=== PATIENT | male | born 1990 | race Caucasian/White ===

== ENCOUNTER 2016-12-18 04:10 | Emergency (ER) | payer OTHER ==
[~2016-12-18] VITALS: Ht 172.7 cm; Wt 68.0 kg
[2016-12-18 04:23] VITALS: BP 156/96
[2016-12-18] MEDS ORDERED: IBUP-1007 PO (04:50)
--- NOTE | 2016-12-18 04:51 | PHYS DOC ---
Past Medical History Past Medical History: Asthma, Depression Past Surgical History: No Surgical History Alcohol Use: Occasionally Drug Use: None Adult General Chief Complaint Chief Complaint: MECHANICAL FALL HPI HPI Patient is a 25 year old male who presents with buttock pain after a fall. The patient states he was at a [employer] & tripped over a broom. He fell backwards onto his buttocks, now complains of right gluteal pain. Denies head trauma or loss of consciousness. No syncope or lightheadedness contributing to fall. Denies back pain or extremity injuries. Denies bowel/ bladder incontinence/retention, denies saddle anesthesia, able to ambulate. No meds taken prior to arrival. Admits to EtOH use tonight. Review of Systems Review of Systems Constitutional: Denies fever or chills HENT: Denies nasal congestion or sore throat Respiratory: Denies cough or shortness of breath Cardiovascular: Denies chest pain GI: Denies abdominal pain Musculoskeletal: Reports buttock pain Integument: Denies rash or skin lesions Neurologic: Denies headache Current Medications Current Medications Current Medications Medications (Trade) Dose Ordered Sig/Derick Start Time Stop Time Status Last Admin Dose Admin Ibuprofen (Motrin) 600 mg 1X ONCE 12/18/16 05:00 12/18/16 05:01 DC 12/18/16 04:44 600 MG Allergies Allergies Allergies Coded Allergies Type Severity Reaction Last Updated Verified No Known Drug Allergies 12/18/16 No Physical Exam Physical Exam Constitutional: Well developed, well nourished, no acute distress, non-toxic appearance. HENT: Normocephalic, atraumatic, bilateral external ears normal, oropharynx moist, nose normal. Eyes: conjunctiva normal, no discharge. Neck: supple, no stridor. Cardiovascular: RRR, no murmurs, no edema. Lungs & Thorax: LCTAB, no wheezing, no respiratory distress. Abdomen: soft, nontender, nondistended. Skin: Warm, dry, no erythema, no rash. Back: No focal spinal tenderness, no step offs. Extremities: generalized tenderness to right buttock without focal bony tenderness to hip or pelvis. Neurologic: Alert and oriented X 3, no focal deficits noted. symmetric strength/ sensation to LE Psychologic: Affect normal, judgement normal, mood normal. Current Patient Data Vital Signs Vital Signs Date Time Temp Pulse Resp B/P Pulse Ox O2 Delivery O2 Flow Rate FiO2 12/18/16 04:23 98.2 117 18 156/96 100 Room Air 98.2 EKG EKG [] Radiology/Procedures Radiology/Procedures [] Course & Med Decision Making Course & Med Decision Making Pertinent Labs and Imaging studies reviewed. (See chart for details) Patient presents with buttock injury after fall. Ambulates from waiting room to exam room with steady gait, no difficulty. Gave ibuprofen here, recommend supportive care with ice packs, ibuprofen, rest. Follow up as needed with Dr. Wade or other primary care physician if not improving in 1 week. Come back for symptoms of cauda equina syndrome or otherwise worsening condition. Discharged home in stable condition. [] Dragon Disclaimer Dragon Disclaimer This electronic medical record was generated, in whole or in part, using a voice recognition dictation system. Departure Departure Impression: Primary Impression: Contusion, buttock Disposition: HOME, SELF-CARE Condition: STABLE Referrals: KATY WADE MD Patient Instructions: Contusion, [id number] Additional Instructions: You were seen in the emergency department today for pain after a fall. This appears to be bruising. Please rest, apply ice or heat, take Tylenol or ibuprofen for pain. Follow-up as needed with a primary care physician if not improving in about one week. Come back for numbness or weakness in legs, loss of control of bowels or bladder, any otherwise worsening condition. Scripts Ibuprofen 600 Mg [id number] Mg PO PRN Q6HRS PRN INFLAMMATION #10 TAB Prov:VANE MI MD 12/18/16 VANE MI MD Dec 18, 2016 04:51
[2016-12-18] MEDS ORDERED: IBUPROFEN 600 MG TABLET. PO ONE (05:00)
== END 2016-12-18 05:13 | disposition home or self-care (01) ==
LOC: ER 04:10
DX: S30.0XXA Contusion of lower back and pelvis, initial encounter (principal); J45.909 Unspecified asthma, uncomplicated; W18.09XA Striking against other object with subsequent fall, initial encounter; Y93.89 Activity, other specified; Y99.8 Other external cause status; Y92.89 Other specified places as the place of occurrence of the external cause
CPT/HCPCS: 99282